=== PATIENT | female | born 1960 | race Caucasian/White ===

== ENCOUNTER 2025-06-04 14:58 | Outpatient (AMB) | payer MEDICARE, MEDICAID, SELFPAY ==
--- NOTE | 2025-06-04 15:14 | MHC.OFFVIS ---
Intake Visit Reasons: 6m Allergies Penicillins (PENICILLINS) Allergy (Intermediate, Unverified 06/04/25 15:21) HIVES Sulfa (Sulfonamide Antibiotics) (SULFA (SULFONAMIDE ANTIBIOTICS)) Allergy (Intermediate, Unverified 06/04/25 15:21) HIVES adhesive (ADHESIVE) Allergy (Mild, Unverified 06/04/25 15:21) RASH STEROID Allergy (Severe, Uncoded 06/04/25 15:21) SHUTS DOWN ADRENAL GLANDS Medication List - Last Reconciled 06/04/25 by Charlene Manzanares CNP albuterol sulfate 90 mcg/actuation 2 puffs inhalation Q6H PRN atorvastatin 20 mg PO DAILY budesonide-formoterol 160-4.5 mcg/actuation 2 puffs inhalation Q12H canagliflozin (Invokana) 300 mg PO DAILY divalproex ER 250 mg PO BID 90 days fluticasone furoate-vilanterol 200-25 mcg/dose (Breo Ellipta) 1 ea inhalation DAILY lacosamide 100 mg PO BID 90 days levetiracetam 1,000 mg PO BID 90 days lisinopril 2.5 mg PO DAILY metoprolol succinate ER 50 mg PO DAILY sertraline 200 mg (2 x 100 mg) PO DAILY 90 days sitagliptin phosphate (Januvia) 25 mg PO DAILY HPI Comments Details: 65-year-old woman with obesity, anxiety, vertigo and epilepsy with generalized seizures of unknown etiology who was also evaluated at [facility] epilepsy clinic. Seizures included a warning of feeling jumpy, not feeling well, an unexplained feeling, leading to passing out. She was told that she shook all over with urinary incontinence and sometimes with tongue bite. EEG revealed generalized polyspike and wave discharges and MRI of brain did not reveal any obvious epileptogenic lesion. She was doing okay. No seizures. Occasionally may miss dose of medication. Balance was off at times. [place] airport [place]. She went to ER and had CT that was apparently okay. Tremors were stable, no functional impairment. She could be forgetful at times. Mood was okay. Sleep was okay, using CPAP. [facility] Medical History (Updated 06/04/25 @ 15:20 by Charlene Manzanares CNP) Multifactorial gait disorder Arthritis Peripheral neuropathy Diabetes mellitus Epilepsy Generalized seizure disorder Anxiety disorder BPPV (benign paroxysmal positional vertigo) Depression Obesity Complex partial seizures Review of Systems Const Denies chills, Denies daytime sleepiness, Denies difficulty sleeping, Reports fatigue, Denies fever(s), Denies frequent falls, Denies headache(s), Denies increased appetite, Denies poor appetite, Denies snoring, Denies weakness, Denies weight gain and Denies weight loss Eyes Denies loss of vision ENT Denies vertigo, Denies dizziness and Denies headache(s) Card Denies chest pain at rest, Denies chest pain with activity, Denies syncope, Denies leg edema and Denies palpitations Resp Denies snoring GI Denies constipation, Denies heartburn, Denies diarrhea and Denies nausea Denies urinary frequency, Denies urinary incontinence and Denies urinary urgency Musc Denies abnormal gait, Denies numbness and Denies tingling Skin/Breast Denies dry skin and Denies rash Neuro Denies abnormal gait, Denies vertigo, Denies dizziness, Denies syncope, Denies frequent falls, Denies headache(s), Denies lack of coordination, Denies loss of vision, Denies memory loss, Denies numbness, Denies restless legs, Denies seizure-like activity, Denies tingling, Denies paresthesias, Denies tremor(s) and Denies weakness Psych Denies anxiety, Denies depression, Denies auditory hallucinations, Denies memory loss, Denies visual hallucinations and Denies suicidal ideation Endo Reports fatigue and Denies palpitations Physical Exam Const Other: General Appearance:? normal, in no acute distress. Heart:? S1, S2 normal, no murmurs. Lungs:? clear anteriorly and posteriorly. Musculoskeletal:? normal. Extremities:? no edema. Psych:? alert, oriented, cognitive function intact, cooperative with exam. Neuro Other: Mental Status:?Normal attention, orientation, memory and affect.? Cranial Nerves:?Pupils are equal, round and reactive to light. External occular muscles are intact. Visual donohue are full. Face is symmetrical. Facial sensations are normal. Tongue is midline. Palate elevates symmetrically. Shoulder shrugging is normal. Hearing to bedside conversation is normal. Motor Examination:?DTRs absent. Sensory Exam:?....? Coordination:?No ataxia,?no titubation.? Gait Exam: Cautious. Extrapyramidal System:?No tremor, rigidity with normal facial expressions.? Involuntary Movements:?Mild postural tremor. Speech:?Normal.? Results Reviewed Results Reviewed: EMG/NCS LEs at off in Jun 2022: b/l distal tibial neuropathy Routine EEG at [facility] in Jan 2020: WNL Amb EEG at [facility] in November 2017: freq gener polyspike and wave discharges Routine EEG at office in Aug 2015: [place] Video EEG monitoring in [facility] in : epileptiform discharges with the recorded seiuzre. Seizure type: complex partial MRI brain [facility] at [facility] in Aug: one small right frontal WM hyperintensity. Assessment & Plan Assessment & Plan (1) Epilepsy: Code(s): G40.909 - Epilepsy, unspecified, not intractable, without status epilepticus Category: Medical Qualifiers: Epilepsy type: unspecified Intractability: not intractable Status epilepticus: without status epilepticus Qualified Code(s): G40.909 - Epilepsy, unspecified, not intractable, without status epilepticus Plan: Continue Vimpat 100mg 1 tablet twice a day. Continue levetiracetam 1000mg 1 tablet twice a day. Continue Depakote ER 250mg 1 tablet twice a day. She was educated on the importance of medication compliance and risk associated with missed doses. Follow up in 6 months or sooner. (2) Depression: Code(s): F32.A - Depression, unspecified Category: Medical Qualifiers: Depression Type: unspecified Qualified Code(s): F32.A - Depression, unspecified Plan: Continue sertraline 100mg 2 tablets daily. (3) Peripheral neuropathy: Code(s): G62.9 - Polyneuropathy, unspecified Category: Medical Qualifiers: Peripheral neuropathy type: polyneuropathy, unspecified Qualified Code(s): G62.9 - Polyneuropathy, unspecified (4) Tremor: Code(s): R25.1 - Tremor, unspecified Category: Medical Plan Meds tried: depakote, lamotrigine, keppra, vimpat Coding Level of Care Code Est Pt Level 4 (32685) Diagnoses Nonintractable epilepsy without status epilepticus, unspecified epilepsy type G40.909 Epilepsy type: unspecified Intractability: not intractable Status epilepticus: without status epilepticus Depression, unspecified depression type F32.A Depression Type: unspecified Peripheral polyneuropathy G62.9 Peripheral neuropathy type: polyneuropathy, unspecified Tremor R25.1
--- OUTSIDE RECORDS SUMMARY | 2025-06-04 15:49 | XMS_ITS ---
Author Name [facility] Organization Unknown Care Team Organization Name Specialty Phone Email Start Date End Da te [facility] 01/22/2025 [facility] Arabella [facility] 11/11/2022 01/22/2024 [facility] Nara Marcelino [facility] 04/12/2022 01/22/20 24
--- OUTSIDE RECORDS SUMMARY | 2025-06-04 15:49 | XMS_ITS | Clinical Summary ---
Author Organization [address] [facility] Address [address] [place] [address] Phone Care Team Providers Care Clinical Lab Technologist Name Role Phone Melissa Malik MD Primary Care Prov ider Allergies Active Allergy Reactions Criticality Noted Date Comments Adhesive 10/30/2012 Bee Venom Protein (Honey Bee) Hives 09/28/2010 Metformin Diarrhea 01/07/2019 Penicillin G 11/17/2005 reaction unknown, family is alllergic so they assumed pt is too. Prednisone Other 11/24/2009 Thirsty, increased hunger, tejeda Other reaction(s): OTHER Thirsty, increased hunger, tejeda Sulfa (Sulfonamide Antibiotics) Itching 06/09/2008 Medications fluticasone propionate (FLONASE) 50 mcg/actuation nasal spray Administer 2 sprays into affected nostril(s). 3 Active multivitamin with minerals tablet Take 1 tablet by mouth 1 (one) time each day. 3 Active blood sugar diagnostic (FreeStyle Lite Strips) test strip Use to test blood sugar once daily 3 Active lacosamide (VIMPAT) 100 mg tablet Take 1 tablet (100 mg total) by mouth. 2 Active FREESTYLE LANCETS MISC Use to check blood sugar once daily fasting. 2 Active levETIRAcetam (KEPPRA) 1,000 mg tablet Take 1 tablet (1,000 mg total) by mouth. 2 Active divalproex (DEPAKOTE ER) 250 mg 24 hr tablet Take 1 tablet (250 mg total) by mouth. 2 Active inhalational spacing device inhaler USE WITH INHALER FOUR TIMES DAILY FOR SHORTNESS OF BREATH (*NOT COVERED*) 2 Active sertraline (ZOLOFT) 100 mg tablet Take 2 tablets (200 mg total) by mouth. 1 Active blood-glucose meter kit Use to check blood sugar once daily fasting. E11.9 9 Active clonazePAM (KlonoPIN) 0.5 mg tablet Take 1 tablet (0.5 mg total) by mouth. Active albuterol HFA (PROAIR HFA ; PROVENTIL HFA ; VENTOLIN HFA) 90 mcg/actuation inhaler Inhale 2 puffs by mouth every 6 (six) hours if needed for wheezing. 6.7 g 2 5 07/12/19 26 Active atorvastatin (LIPITOR) 20 mg tablet TAKE 1 TABLET BY MOUTH EVERY DAY 90 tablet 1 5 Active Januvia 25 mg tablet TAKE 1 TABLET BY MOUTH EVERY DAY 90 tablet 1 5 Active nabumetone (RELAFEN) 750 mg tablet Take 1 tablet (750 mg total) by mouth 2 (two) times a day. 28 tablet 5 Active metoprolol succinate (TOPROL-XL) 25 mg 24 hr tablet TAKE 2 TABLETS BY MOUTH EVERY DAY 180 tablet 1 5 Active Invokana 300 mg tablet TAKE 1 TABLET BY MOUTH EVERY DAY 90 tablet 1 5 Active lisinopriL (PRINIVIL,ZESTR IL) 2.5 mg tablet TAKE 1 TABLET BY MOUTH EVERY DAY 90 tablet 1 5 Active Active Problems Problem Noted Date Diagnosed Date Abnormal EKG 09/17/2024 Assessment & Plan (09/17/2024 9:00 AM EDT): The patient's EKG today showed evidence of a septal infarct pattern. This is new when compared to her prior EKG. Will order an echocardiogram to rule out the presence of any regional wall motion abnormality that could represent the presence of a prior NH. In the meantime, the patient will continue her current medication regimen. Orders: Transthoracic echocardiogram (TTE) complete with PRN contrast, bubble, strain, and 3D order panel; Future perflutren lipid microsphere (DEFINITY) 1.3 mL in sodium chloride 0.9% 8.7 mL injection Primary hypertension 09/17/2024 Assessment & Plan (09/17/2024 9:00 AM EDT): The patient has a history of arterial hypertension. The patient's blood pressure today was noted to be well controlled. We'll continue the current antihypertensive medication regimen. Morbid obesity with BMI of 40.0-44.9, adult 07/07 Relative polycythemia 07/06/2023 Overview (07/25/2023): Previously seen with Dr. Haro Microalbuminuria 03/25/2022 Nocturnal hypoxia 02/26/2022 Overview (07/25/2023): Patient overnight oximetry on 02/22/2022 shows significant desaturation on CPAP: 1. Lowest oxygen 83% 2. Basal SPO2 is 87%. 3. Time spent under 88% is 365 minutes. 4. Supplemental oxygen indicated in addition to CPAP. Patient's overnight oximetry on 12/15/2022 on CPAP and 2 L of oxygen shows significant desaturations: 1. Lowest SPO2 is 85%. 2. Time spent less than 88% is 1 hour 46minutes out of 8 hours 20 minutes sleep time. 3. CPAP and oxygen is not adequately controlling her patient's oxygenation at this time new sleep study on different Treatment is necessary. Last Assessment & Plan: 1. Supplemental oxygen at 2 L and to [employer] to added to CPAP. 2. Treatment sleep study ordered. Nocturnal hypoxia 02/26/2022 Overview (03/13/2024): Patient overnight oximetry on 07/03/2023 shows significant desaturation on BiPAP: 1. Lowest oxygen 82% 2. Basal SPO2 is 89%. 3. Time spent under 88% is 278 minutes. 4. Supplemental oxygen indicated in addition to BiPAP at 3L. Patient overnight oximetry on 02/22/2022 shows significant desaturation on CPAP: 1. Lowest oxygen 83% 2. Basal SPO2 is 87%. 3. Time spent under 88% is 365 minutes. 4. Supplemental oxygen indicated in addition to CPAP. Patient's overnight oximetry on 12/15/2022 on CPAP and 2 L of oxygen shows significant desaturations: 1. Lowest SPO2 is 85%. 2. Time spent less than 88% is 1 hour 46minutes out of 8 hours 20 minutes sleep time. 3. CPAP and oxygen is not adequately controlling her patient's oxygenation at this time new sleep study on different Treatment is necessary. Last Assessment & Plan: 1. Supplemental oxygen at 2 L and to [employer] to added to CPAP. 2. Treatment sleep study ordered. Anxiety 01/08/2022 Obstructive sleep apnea 08/17/2021 Overview (07/25/2023): [facility] home sleep test 08/27/2021; weight 251; BMI 43. AHI 6. 5 obstructive apneas, 3 central apneas and 38 hypopneas. Average oxygen saturation 87% and oxygen carlton 80%. Obstructive sleep apnea-mild with mostly hypopneas and some obstructive and central apneas; nocturnal hypoxemia based on 2021 home sleep test. Frequent PVCs 05/06/2021 Overview (07/25/2023): Last Assessment & Plan: Patient has a history of palpitations secondary to symptomatic PVCs. She completed a Holter monitor previously which showed a PVC burden of 2.3%. She also completed a sleep study which showed obstructive sleep apnea and continues to wear her CPAP with oxygen on a nightly basis and follows with pulmonology closely. Echocardiogram completed September 2021 showed normal LV function and no significant valve disease. She also completed a pharmacological nuclear stress test which showed no evidence of ischemia or infarct. At her last office visit, her metoprolol was increased to 50 mg orally daily to help suppress her symptoms of palpitations. She reports improvement in her symptoms. At this point, we will continue her current dose of metoprolol. Her heart rate is noted to be 72 bpm. We reviewed the possible triggers of palpitations including caffeine consumption, alcohol consumption, cigarette smoking, inadequate sleeping patterns, and stress. At this point, the patient will attempt to avoid the usual triggers. She will continue to try to cut back on her smoking. She will continue to wear her CPAP. 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 Assessment & Plan (09/17/2024 9:00 AM EDT): The patient has a history of frequent PVCs. She is on beta-della therapy with metoprolol. She denies any palpitations on today's visit. Will continue her current beta-della therapy Orders: ECG 12 lead Dyslipidemia 12/21/2020 Overview (07/25/2023): Last Assessment & Plan: Patient has a history of hyperlipidemia as well as a history of diabetes. She is currently on atorvastatin 20 mg orally daily. Will continue current therapy. I have reviewed with the patient the importance of a heart healthy lifestyle which includes eating a low-fat low-salt diet, getting regular exercise, maintaining a healthy weight, not smoking, and following up with routine medical care. Assessment & Plan (07/12/2024 12:29 PM EST): Patient currently on atorvastatin 20 mg a day. Last LDL was 89 We will continue same medication. Healthy diet and regular exercise were encouraged today. Epilepsy 12/21/2020 Overview (07/25/2023): followed by Dr. Hartman Assessment & Plan (07/12/2024 12:29 PM EST): Follows regularly with neurology. No seizures over the last year. Recommended to continue Keppra and Depakote as prescribed by the specialist. Moderate depressive episode 04/15/2020 Controlled type 2 diabetes m [place] without complication, without long-term current use of insulin 03/21/2019 Assessment & Plan (07/12/2024 12:29 PM EST): Well controlled, hemoglobin A1c has been stable 7.3. Patient currently on canagliflozin, Januvia, trying to follow the recommended diet. She is also on lisinopril 2.5 mg a day for renal protection. Low-carb diet and regular exercise were discussed with the patient. We will continue same medications. We will follow-up in 4 months. Orders: Hemoglobin A1c; Future Fatty infiltration of liver 12/17/2018 Diverticulitis of large inte jono without perforation or abscess without bleeding 04/10/2017 Erythrocytosis 04/26/2014 Overview (07/25/2023): Hgb usually 16.2-16.4 Thyroid nodule 01/30/2014 DJD (degenerative joint disease) of cervical spi ne 10/04/2012 DJD (degenerative joint disease) of knee 013 Overview (07/25/2023): Dr. Hilton Kilpatrick Smoking 07/23/2009 Overview (07/25/2023): Last Assessment & Plan: The patient has a history of chronic cigarette smoking. During today's conversation, I encouraged the patient to quit smoking. The patient stated she is not yet ready to quit smoking. I thoroughly explained the fact that her history of smoking does increase her risk of having a heart attack or a cerebrovascular accident. Despite this morning, the patient stated that she is still not ready to quit smoking. BPV (benign positional vertigo) 11/17/2005 Resolved Problems Problem Noted Date Diagnosed Date Resolved Date Dyspnea 08/23/2021 09/17/2024 Overview (07/25/2023): Last Assessment & Plan: The patient states that she has been experiencing episodes of exertional dyspnea. She denies any chest pain at rest or with exertion. The patient does have multiple risk factors for CAD including: Diabetes, chronic smoking, and hyperlipidemia. As such, we need to consider the possibility of ischemic heart disease as a cause of the patient's exertional dyspnea. Furthermore, on a previous chest CT (11/15/2021): The patient was noted to have atherosclerotic calcification of the coronary arteries. Given the scenario, we will schedule the patient for a stress test. However, given the patient's history of osteoarthritis she will be unlikely to be able to complete an exercise protocol. As such, we will schedule the patient for a pharmacological nuclear stress test. Encounters Date Type Department Care Team Description 05/17/2025 9:39 AM EST - 05/17/2025 12:26 PM [facility] [address] [place] [id number] Marco Antonio Mercedes MD Head injury, initial encounter (Primary Dx); Fall, initial encounter; Nonintractable headache, unspecified chronicity pattern, unspecified headache type Discharge Disposition: Home or Self Care 05/16/2025 Telephone Adult Medicine [address] [phone] Melissa Malik MD from Last 3 Months Immunizations Immunization Administration Dates Next Due Influenza Quadravalent, MDCK , 0.5ml, preservative free (Flucelvax) 6mo and older 03/25/2022 Influenza Quadravalent, MDCK , 0.5ml, with preservative (Flucelvax) 6mo and older 03/15/2023,01/20/2021,03/28/2019,03/28 Influenza trivalent, recombi nant, 0.5mL, preservative free (Flublok) 9yo and older 04/21/2025 Influenza trivalent, with pr eservative (Fluzone; Afluria) 6mo and older 03/28/2020,03/28/2019 Influenza, Unspecified 02/03/2021 Moderna (age 6mo & older) Bi valent, COVID-19, 0.5 mL or 0.25 mL dosage 08/20/2022 Moderna SARS-CoV-2 COVID-19, mRNA, LNP-S, preservative free 08/20/2022,05/06/2021 Pfizer SARS-CoV-2 COVID-19, mRNA, LNP-S, preservative free 05/06/2021 Pneumococcal conjugate 20 va lent (Prevnar 20, PCV 20) 2mo and older 01/13/2025 Pneumococcal polysaccharide 23 valent (Pneumovax 23) 2yo and older 04/15/2019 RSV, bivalent, protein subun it RSVpreF, 0.5mL, Preservative Free (Arexvy) 50yo and older 02/14/2024 Td Tetanus diptheria (Tdvax) 7yo and older 03/03/2004 Tdap Tetanus diptheria acell ular pertussis (Boostrix; Adacel) 7yo and older 04/21/2025 Zoster recombinant (Shingrix ) 19yo and older 06/28/2020,03/28/2020 Surgical History Surgery Date Site/Laterality Comments KNEE SURGERY PROCEDURE: HISTORICAL KNEE SURGERY; COMMENT: arthroscopic x 5 on right and x 1 on left CHOLECYSTECTOMY 1997 PROCEDURE: HISTORICAL CHOLECYSTECTOMY HYSTERECTOMY - 1999 PROCEDURE: HISTORICAL HYSTERECTOMY; COMMENT: ovaries/cervic removed, for endometrial hyperplasia HAND SURGERY 2008 Right PROCEDURE: HISTORICAL HAND SURGERY; COMMENT: removed accessory bone CARPAL TUNNEL RELEASE 2009 Right PROCEDURE: HISTORICAL CARPAL TUNNEL REL FINE NEEDLE ASPIRATION PROCEDURE: FINE NDLE ASPRTN W/IMAGING GUIDANCE; COMMENT: rt. breast bx-fna OTHER SURGICAL HISTORY PROCEDURE: ---- OTHER ----; COMMENT: abdominal hernia repair, pt unsure what kind, they found two , few years ago cannot recall when Medical History Medical History Date Comments Dizziness and giddiness 11/17/2005 DX:Dizzi ness and giddiness Allergic rhinitis, cause unspecified DX:Allergic rhinitis, cause unspecified Controlled type 2 diabetes m ell[place] without complication, without long-term current use of insulin ([facility] V24, [facility] V28) 03/21/2019 DX:Controlled type 2 diabet es mellitus without complication, without long-term current use of insulin (HCC) Epilepsy ([facility] V24, [facility] V28) DX:Epilepsy (HCC); COMMENT: followed by Dr. Hartman Depression DX:Depression; C OMMENT: Dr. Hartman History of colonoscopy DX:Histor y of colonoscopy; COMMENT: never had one, declined, 07/22/20 stool guiac negative Anxiety 01/08/2022 DX:Anxiety Family History Medical History Relation Name Comments Other: kidey prob Father diabetes COPD Mother Breast cancer Neg Hx Relation Name Status Comments Brother Alive Barney-Parkinson White Syndrome; ablation Father (Age 79) HTN, DMII, CAD s/p bypass, high cholesterol, ARF Maternal Grandfather (Age 96) Co odessa cancer Maternal Grandmother (Age 60s) E mphysema Mother Alive COPD, cataracts , tremors Other Alive Paternal Grandfather (Age 70s) S tomach cancer Paternal Grandmother (Age 70s) C ancer ? type Sister Alive GERD, Barrets e sophagus Social History Tobacco Use Types Packs/Day Years Used Date Smoking Tobacco: Every Day Cigarettes Smokeless Tobacco: Never Alcohol Use Standard Drinks/Week Comments Not Currently 0 (1 standard drink = 0.6 oz pur e alcohol) Housing Instability Answer Date Recorde d Are you worried that in the next 2 months you may not have stable housing? No 07/12/2024 Food Access & Nutrition Answer Date Rec orded Do you have access to a vari ety of food including fruits and vegetables? No 07/12/2024 Access to Healthcare Answer Date Record ed Within the last 3 months, barbie low many times did you visit the emergency department for your medical care? 0 07/12/2024 Health Literacy Answer Date Recorded How often do you need to hav e someone help you when you read instructions, pamphlets, or other written material from your doctor or pharmacy? Never 07/12/2024 Caregiver: How often do you need to have someone help you when you read instructions, pamphlets, or other written material from your doctor or pharmacy? Not on file 07/12/2024 Financial Risk Answer Date Recorded How hard is it for you to pa y for the very basics like food, housing, medical care, and air conditioning / heating? Not very hard 07/12/2024 Transportation Answer Date Recorded Has the lack of transportati on kept you from meetings, work, or from getting things needed for daily living? No Has the lack of transportati on kept you from medical appointments or from getting medications? No 07/12/2024 Social Isolation Answer Date Recorded How often do you feel lonely or isolated from th ose around you? Never 07/12/2024 Food Risk Answer Date Recorded Within the past 12 months we worried whether our food would run out before we got money to buy more. Never true 07/12/2024 Within the past 12 months th e food we bought just didn't last and we didn't have money to get more. Never true 07/12/2024 Dependent Care Answer Date Recorded Do you need help finding or paying for care for your loved ones. For example, child caregiver or elderly care for an older adult? No 07/12/2024 Education Answer Date Recorded Do you think completing more education or training, like finishing a GED, going to college, or learning a trade, would be helpful for you? No 07/12/2024 Living Situation Answer Date Recorded What is your living situation? Unrecognized valu e 07/12/2024 Comments No Sex and Gender Information Value Date Recorded Sex Assigned at Female 04/12/2024 9:19 AM EST Legal Sex Female 9:50 PM EST Gender Identity Female 04/12/2024 9:19 AM EST Sexual Orientation Straight 04/12/2024 9: 19 AM EST Obstetrics History Para Term AB IAB SAB Ectopic Multiple Livin g Live Births 0 0 0 Last Filed Vital Signs Vital Sign Reading Time Taken Comments Blood Pressure 109/38 05/17/2025 11:19 AM EST Pulse 73 05/17/2025 11:19 AM EST Temperature 36.3 C (97.3 F) 05/17/2025 11:19 AM EST Respiratory Rate 16 05/17/2025 11:19 AM EST Oxygen Saturation 93% 05/17/2025 11:19 AM EST Inhaled Oxygen Concentration - - Weight 109 kg (241 lb) 05/17/2025 8:57 AM EST Height 162.6 cm (5' 4 ) 05/17/2025 8:57 AM EST Body Mass Index 41.37 05/17/2025 8:57 AM EST Plan of Treatment Health Maintenance Due Date Last Done Comments Drug Screen 1960 Non-Opioid Controlled Substance Agreement 1960 Diabetes: Annual Urine Albumin-Creatinine Ratio (uACR) 10/26/2024 10/27/2023 Diabetes: Annual GFR (Glomerular Filtration Rate) 07/02/2025 07/02/2024, 02/12/2024, 02/12/2024, Additional history exists Hypertension/CHF/CAD Annual BMP Blood Test 07/02/2025 07/02/2024, 02/12/2024, 02/12/2024, Additional history exists Diabetes: Blood Sugar Control Test (HGBA1C) 07/12/2025 01/09/2025, 07/02/2024, 02/12/2024, Additional history exists Social Influencers of Health Screening 07/12/2025 07/12/2024 Diabetes: Annual Retina Eye Exam 09/12/2025 09/12/2024 Lung Cancer Screening (Low Dose CT) 11/28/2025 11/28/2024, 11/28/2023, 11/22/2022, Additional history exists Diabetes: Annual Foot Exam 01/13/2026 01/13/2025, Breast Cancer Screening 08/13/2026 08/14/19, 07/31/2023, 07/21/2022, Additional history exists Medicare Annual Wellness Visit 2027 Postponed from 05/14/2022 (Not clinically appropriate to address at this time) Colorectal Cancer Screening: FIT-DNA (Cologuard) 03/10/2027 03/10/2024 Cholesterol Screening (Lipid Panel) 07/02/2029 07/02/2024, 10/27/2023, 10/27/2023, Additional history exists DTaP,Tdap,and Td Vaccines (3 - Td or Tdap) 04/21/2035 04/21/2025, 03/03/2004 Hepatitis C Screening Completed 03/21/2015 Zoster Vaccines Completed 06/28/2020, 03/28/2020 RSV Immunization Adult Patients Completed 02/14/2024 Depression Screening Completed 01/13/2025, 11/06/19 Pneumococcal Vaccine: 50+ Years Completed 01/13/2025, 04/15/2019 COVID-19 Vaccine Completed 04/21/2025, 04/2024, 03/15/2023, Additional history exists Influenza Vaccine Completed 04/21/2025, , 03/25/2022, Additional history exists HIB Vaccines Aged Out No longer eligi ble based on patient's age to complete this topic HIV Screening Discontinued HPV Vaccines Aged Out No longer eligi ble based on patient's age to complete this topic Hepatitis A Vaccines Aged Out No long er eligible based on patient's age to complete this topic Hepatitis B Vaccines Aged Out No long er eligible based on patient's age to complete this topic IPV Vaccines Aged Out No longer eligi ble based on patient's age to complete this topic MMR Vaccines Aged Out No longer eligi ble based on patient's age to complete this topic Meningococcal ACWY Vaccine Aged Out N o longer eligible based on patient's age to complete this topic Meningococcal B Vaccine Aged Out No l onger eligible based on patient's age to complete this topic RSV Immunization Patients Under 20 months Aged Out No longer eligible based on patient's age to complete this topic Varicella Vaccines Aged Out No longer eligible based on patient's age to complete this topic Procedures Procedure Name Priority Date/Time Associated Diagnosis Comments CT CERVICAL SPINE WO CONTRAST STAT 05/17/2025 10:[address] MAXILLOFACIAL WO CONTRAST STAT 05/17/2025 10:[address] HEAD WO CONTRAST STAT 05/17/2025 1 0:49 AM EST HEMOGLOBIN A1C Routine 01/09/2025 11:28 AM EDT Controlled type 2 diabetes mellitus without complication, without long-term current use of insulin (CMS/HCC V24, CMS/HCC V28) CT LUNG SCREENING Routine 11/28/2024 1:5 3 PM EDT Encounter for screening for malignant neoplasm of respiratory organs Nicotine dependence, cigarettes, uncomplicated EXTERNAL DIABETIC RETINA EYE EXAM 09/12/2024 MG MAMMO DIGITAL SCREENING W PETER BILAT Routine 08/13/2024 1:59 PM EDT Encounter for screening mammogram for breast cancer COMPREHENSIVE METABOLIC PANEL Routine 07/02/2024 11:40 AM EST Controlled type 2 diabetes mellitus without complication, without long-term current use of insulin (CMS/HCC V24, CMS/HCC V28) LIPID PANEL WITH REFLEX TO DIRECT LDL Routine 07/02/2024 11:40 AM EST Controlled type 2 diabetes mellitus without complication, without long-term current use of insulin (CMS/HCC V24, CMS/HCC V28) EXTERNAL COLOGUARD (FIT-DNA) REPORT Routine 03/10/2024 1:49 PM EDT DIABETES FOOT EXAM Routine 02/13/2024 DEPRESSION SCREENING Routine 11/06/2023 URINE ALBUMIN CREATININE RATIO Routine 10/27/2023 HEPATITIS C SCREENING Routine 03/21/2015 from Last 3 Months or Most Recently Relevant to Health Maintenance Results * CT Cervical Spine wo Contrast (05/17/2025 10:49 AM EST) Anatomical Region Laterality Modality Spine, C-spine Computed Tomogra phy 05/17/2025 11:1 6 AM EST Impressions 05/17/2025 11:29 AM EST No intracranial hemorrhage. No intracranial mass. No acute fracture or subluxation of the cervical spine. No acute maxillofacial fracture. There is a superficial hematoma in the right supraorbital region. -------- FINAL REPORT -------- Dictated By: Keegan Bañuelos Dictated Date: 05/17/2025 11:16 ET Assigned Physician: Keegan Bañuelos Reviewed and Electronically Signed By: Keegan Bañuelos Signed Date: 05/17/2025 11:29 ET Workstation ID: [id number] Transcribed By: Self Edit Transcribed Date: 05/17/2025 11:16 ET Narrative 05/17/2025 11:29 AM EST EXAMINATION: CT HEAD WITHOUT CONTRAST CT CERVICAL SPINE WITHOUT CONTRAST CT MAXILLOFACIAL WITHOUT CONTRAST CLINICAL INFORMATION: Right frontal head trauma. Headache. Fall. Bilateral periorbital ecchymosis post head trauma COMPARISON: None TECHNIQUE: Multidetector CT. Examination of the head, maxillofacial region and cervical spine. Examination of the head, cervical spine and maxillofacial region without IV contrast. Reformatting in the coronal and sagittal planes. DLP: 2406 mGy-cm Dose optimization was performed including the use of low-dose iterative reconstruction technique with automatic exposure control based on patient size. Type of contrast: None Volume of IV contrast: None Volume of contrast discarded: 0 mL FINDINGS: Significant artifact through the skull base. HEAD CT: Intracranial hemorrhage: No evidence of recent intracranial hemorrhage. Ventricles, cisterns and sulci: There is no midline shift. There is no dilation of the ventricles. The basilar cisterns are well visualized. Extra-axial mass or collections: No extra-axial mass or collection Intra-axial mass: No mass demonstrated Acute infarct: No acute territorial infarct demonstrated. White matter disease: No suspicious abnormality. Anguiano-white interface: No disruption of the anguiano-white interface. Paranasal sinuses: The visualized paranasal sinuses are well pneumatized and aerated Osseous/Scalp[: No focal bony lesion CERVICAL CT: There is no acute fracture or subluxation. No suspicious focal lesion or loss of volume. Mild disc narrowing at C5/C6 and C6/C7 with some associated osteophyte. No large abnormality within the spinal canal. There is a small nodule measuring close to 1 cm at the junction of the right lobe and isthmus of the thyroid No suspicious abnormality the visualized apex of the chest MAXILLOFACIAL CT: There is a superficial hematoma in the right supraorbital region. No acute maxillofacial fracture. Specifically the orbital rims, zygomatic arches, mandible and lamina papyracea as well as the pterygoids appear intact. No orbital hematoma. The globes appear intact and symmetric. Procedure Note Keegan Bañuelos MD - 05/17/2025 EXAMINATION: CT HEAD WITHOUT CONTRAST CT CERVICAL SPINE WITHOUT CONTRAST CT MAXILLOFACIAL WITHOUT CONTRAST CLINICAL INFORMATION: Right frontal head trauma. Headache. Fall. Bilateral periorbitalecchymosis post head trauma COMPARISON: None TECHNIQUE: Multidetector CT. Examination of the head, maxillofacial region andcervical spine. Examination of the head, cervical spine and maxillofacial region withoutIV contrast. Reformatting in the coronal and sagittal planes. DLP: 2406 mGy-cm Dose optimization was performed including the use of low-dose iterativereconstruction technique with automatic exposure control based on patientsize. Type of contrast: None Volume of IV contrast: None Volume of contrast discarded: 0 mL FINDINGS: Significant artifact through the skull base. HEAD CT: Intracranial hemorrhage: No evidence of recent intracranial hemorrhage. Ventricles, cisterns and sulci: There is no midline shift. There is nodilation of the ventricles. The basilar cisterns are well visualized. Extra-axial mass or collections: No extra-axial mass or collection Intra-axial mass: No mass demonstrated Acute infarct: No acute territorial infarct demonstrated. White matter disease: No suspicious abnormality. Anguiano-white interface: No disruption of the anguiano-white interface. Paranasal sinuses: The visualized paranasal sinuses are well pneumatizedand aerated Osseous/Scalp[: No focal bony lesion CERVICAL CT: There is no acute fracture or subluxation. No suspicious focal lesion orloss of volume. Mild disc narrowing at C5/C6 and C6/C7 with some associated osteophyte. No large abnormality within the spinal canal. There is a small nodule measuring close to 1 cm at the junction of theright lobe and isthmus of the thyroid No suspicious abnormality the visualized apex of the chest MAXILLOFACIAL CT: There is a superficial hematoma in the right supraorbital region. No acute maxillofacial fracture. Specifically the orbital rims, zygomaticarches, mandible and lamina papyracea as well as the pterygoids appearintact. No orbital hematoma. The globes appear intact and symmetric. IMPRESSION: No intracranial hemorrhage. No intracranial mass. No acute fracture or subluxation of the cervical spine. No acute maxillofacial fracture. There is a superficial hematoma in the right supraorbital region. -------- FINAL REPORT -------- Dictated By: Keegan Bañuelos Dictated Date: 05/17/2025 11:16 ET Assigned Physician: Keegan Bañuelos Reviewed and Electronically Signed By: Keegan Bañuelos Signed Date: 05/17/2025 11:29 ET Workstation ID: [id number] Transcribed By: Self Edit Transcribed Date: 05/17/2025 11:16 ET Marco Antonio Mercedes MD IMAlex CT PROCEDURES Final Result * CT Maxillofacial wo Contrast (05/17/2025 10:49 AM EST) Anatomical Region Laterality Modality Head and Neck Computed Tomogra phy 05/17/2025 11:1 6 AM EST Impressions 05/17/2025 11:29 AM EST No intracranial hemorrhage. No intracranial mass. No acute fracture or subluxation of the cervical spine. No acute maxillofacial fracture. There is a superficial hematoma in the right supraorbital region. -------- FINAL REPORT -------- Dictated By: Keegan Bañuelos Dictated Date: 05/17/2025 11:16 ET Assigned Physician: Keegan Bañuelos Reviewed and Electronically Signed By: Keegan Bañuelos Signed Date: 05/17/2025 11:29 ET Workstation ID: [id number] Transcribed By: Self Edit Transcribed Date: 05/17/2025 11:16 ET Narrative 05/17/2025 11:29 AM EST EXAMINATION: CT HEAD WITHOUT CONTRAST CT CERVICAL SPINE WITHOUT CONTRAST CT MAXILLOFACIAL WITHOUT CONTRAST CLINICAL INFORMATION: Right frontal head trauma. Headache. Fall. Bilateral periorbital ecchymosis post head trauma COMPARISON: None TECHNIQUE: Multidetector CT. Examination of the head, maxillofacial region and cervical spine. Examination of the head, cervical spine and maxillofacial region without IV contrast. Reformatting in the coronal and sagittal planes. DLP: 2406 mGy-cm Dose optimization was performed including the use of low-dose iterative reconstruction technique with automatic exposure control based on patient size. Type of contrast: None Volume of IV contrast: None Volume of contrast discarded: 0 mL FINDINGS: Significant artifact through the skull base. HEAD CT: Intracranial hemorrhage: No evidence of recent intracranial hemorrhage. Ventricles, cisterns and sulci: There is no midline shift. There is no dilation of the ventricles. The basilar cisterns are well visualized. Extra-axial mass or collections: No extra-axial mass or collection Intra-axial mass: No mass demonstrated Acute infarct: No acute territorial infarct demonstrated. White matter disease: No suspicious abnormality. Anguiano-white interface: No disruption of the anguiano-white interface. Paranasal sinuses: The visualized paranasal sinuses are well pneumatized and aerated Osseous/Scalp[: No focal bony lesion CERVICAL CT: There is no acute fracture or subluxation. No suspicious focal lesion or loss of volume. Mild disc narrowing at C5/C6 and C6/C7 with some associated osteophyte. No large abnormality within the spinal canal. There is a small nodule measuring close to 1 cm at the junction of the right lobe and isthmus of the thyroid No suspicious abnormality the visualized apex of the chest MAXILLOFACIAL CT: There is a superficial hematoma in the right supraorbital region. No acute maxillofacial fracture. Specifically the orbital rims, zygomatic arches, mandible and lamina papyracea as well as the pterygoids appear intact. No orbital hematoma. The globes appear intact and symmetric. Procedure Note Keegan Bañuelos MD - 05/17/2025 EXAMINATION: CT HEAD WITHOUT CONTRAST CT CERVICAL SPINE WITHOUT CONTRAST CT MAXILLOFACIAL WITHOUT CONTRAST CLINICAL INFORMATION: Right frontal head trauma. Headache. Fall. Bilateral periorbitalecchymosis post head trauma COMPARISON: None TECHNIQUE: Multidetector CT. Examination of the head, maxillofacial region andcervical spine. Examination of the head, cervical spine and maxillofacial region withoutIV contrast. Reformatting in the coronal and sagittal planes. DLP: 2406 mGy-cm Dose optimization was performed including the use of low-dose iterativereconstruction technique with automatic exposure control based on patientsize. Type of contrast: None Volume of IV contrast: None Volume of contrast discarded: 0 mL FINDINGS: Significant artifact through the skull base. HEAD CT: Intracranial hemorrhage: No evidence of recent intracranial hemorrhage. Ventricles, cisterns and sulci: There is no midline shift. There is nodilation of the ventricles. The basilar cisterns are well visualized. Extra-axial mass or collections: No extra-axial mass or collection Intra-axial mass: No mass demonstrated Acute infarct: No acute territorial infarct demonstrated. White matter disease: No suspicious abnormality. Anguiano-white interface: No disruption of the anguiano-white interface. Paranasal sinuses: The visualized paranasal sinuses are well pneumatizedand aerated Osseous/Scalp[: No focal bony lesion CERVICAL CT: There is no acute fracture or subluxation. No suspicious focal lesion orloss of volume. Mild disc narrowing at C5/C6 and C6/C7 with some associated osteophyte. No large abnormality within the spinal canal. There is a small nodule measuring close to 1 cm at the junction of theright lobe and isthmus of the thyroid No suspicious abnormality the visualized apex of the chest MAXILLOFACIAL CT: There is a superficial hematoma in the right supraorbital region. No acute maxillofacial fracture. Specifically the orbital rims, zygomaticarches, mandible and lamina papyracea as well as the pterygoids appearintact. No orbital hematoma. The globes appear intact and symmetric. IMPRESSION: No intracranial hemorrhage. No intracranial mass. No acute fracture or subluxation of the cervical spine. No acute maxillofacial fracture. There is a superficial hematoma in the right supraorbital region. -------- FINAL REPORT -------- Dictated By: Keegan Bañuelos Dictated Date: 05/17/2025 11:16 ET Assigned Physician: Keegan Bañuelos Reviewed and Electronically Signed By: Keegan Bañuelos Signed Date: 05/17/2025 11:29 ET Workstation ID: [id number] Transcribed By: Self Edit Transcribed Date: 05/17/2025 11:16 ET Marco Antonio Mercedes MD IMAlex CT PROCEDURES Final Result * CT Head wo Contrast (05/17/2025 10:49 AM EST) Anatomical Region Laterality Modality Head and Neck Computed Tomogra phy 05/17/2025 11:1 6 AM EST Impressions 05/17/2025 11:29 AM EST No intracranial hemorrhage. No intracranial mass. No acute fracture or subluxation of the cervical spine. No acute maxillofacial fracture. There is a superficial hematoma in the right supraorbital region. -------- FINAL REPORT -------- Dictated By: Keegan Bañuelos Dictated Date: 05/17/2025 11:16 ET Assigned Physician: Keegan Bañuelos Reviewed and Electronically Signed By: Keegan Bañuelos Signed Date: 05/17/2025 11:29 ET Workstation ID: [id number] Transcribed By: Self Edit Transcribed Date: 05/17/2025 11:16 ET Narrative 05/17/2025 11:29 AM EST EXAMINATION: CT HEAD WITHOUT CONTRAST CT CERVICAL SPINE WITHOUT CONTRAST CT MAXILLOFACIAL WITHOUT CONTRAST CLINICAL INFORMATION: Right frontal head trauma. Headache. Fall. Bilateral periorbital ecchymosis post head trauma COMPARISON: None TECHNIQUE: Multidetector CT. Examination of the head, maxillofacial region and cervical spine. Examination of the head, cervical spine and maxillofacial region without IV contrast. Reformatting in the coronal and sagittal planes. DLP: 2406 mGy-cm Dose optimization was performed including the use of low-dose iterative reconstruction technique with automatic exposure control based on patient size. Type of contrast: None Volume of IV contrast: None Volume of contrast discarded: 0 mL FINDINGS: Significant artifact through the skull base. HEAD CT: Intracranial hemorrhage: No evidence of recent intracranial hemorrhage. Ventricles, cisterns and sulci: There is no midline shift. There is no dilation of the ventricles. The basilar cisterns are well visualized. Extra-axial mass or collections: No extra-axial mass or collection Intra-axial mass: No mass demonstrated Acute infarct: No acute territorial infarct demonstrated. White matter disease: No suspicious abnormality. Anguiano-white interface: No disruption of the anguiano-white interface. Paranasal sinuses: The visualized paranasal sinuses are well pneumatized and aerated Osseous/Scalp[: No focal bony lesion CERVICAL CT: There is no acute fracture or subluxation. No suspicious focal lesion or loss of volume. Mild disc narrowing at C5/C6 and C6/C7 with some associated osteophyte. No large abnormality within the spinal canal. There is a small nodule measuring close to 1 cm at the junction of the right lobe and isthmus of the thyroid No suspicious abnormality the visualized apex of the chest MAXILLOFACIAL CT: There is a superficial hematoma in the right supraorbital region. No acute maxillofacial fracture. Specifically the orbital rims, zygomatic arches, mandible and lamina papyracea as well as the pterygoids appear intact. No orbital hematoma. The globes appear intact and symmetric. Procedure Note Keegan Bañuelos MD - 05/17/2025 EXAMINATION: CT HEAD WITHOUT CONTRAST CT CERVICAL SPINE WITHOUT CONTRAST CT MAXILLOFACIAL WITHOUT CONTRAST CLINICAL INFORMATION: Right frontal head trauma. Headache. Fall. Bilateral periorbitalecchymosis post head trauma COMPARISON: None TECHNIQUE: Multidetector CT. Examination of the head, maxillofacial region andcervical spine. Examination of the head, cervical spine and maxillofacial region withoutIV contrast. Reformatting in the coronal and sagittal planes. DLP: 2406 mGy-cm Dose optimization was performed including the use of low-dose iterativereconstruction technique with automatic exposure control based on patientsize. Type of contrast: None Volume of IV contrast: None Volume of contrast discarded: 0 mL FINDINGS: Significant artifact through the skull base. HEAD CT: Intracranial hemorrhage: No evidence of recent intracranial hemorrhage. Ventricles, cisterns and sulci: There is no midline shift. There is nodilation of the ventricles. The basilar cisterns are well visualized. Extra-axial mass or collections: No extra-axial mass or collection Intra-axial mass: No mass demonstrated Acute infarct: No acute territorial infarct demonstrated. White matter disease: No suspicious abnormality. Anguiano-white interface: No disruption of the anguiano-white interface. Paranasal sinuses: The visualized paranasal sinuses are well pneumatizedand aerated Osseous/Scalp[: No focal bony lesion CERVICAL CT: There is no acute fracture or subluxation. No suspicious focal lesion orloss of volume. Mild disc narrowing at C5/C6 and C6/C7 with some associated osteophyte. No large abnormality within the spinal canal. There is a small nodule measuring close to 1 cm at the junction of theright lobe and isthmus of the thyroid No suspicious abnormality the visualized apex of the chest MAXILLOFACIAL CT: There is a superficial hematoma in the right supraorbital region. No acute maxillofacial fracture. Specifically the orbital rims, zygomaticarches, mandible and lamina papyracea as well as the pterygoids appearintact. No orbital hematoma. The globes appear intact and symmetric. IMPRESSION: No intracranial hemorrhage. No intracranial mass. No acute fracture or subluxation of the cervical spine. No acute maxillofacial fracture. There is a superficial hematoma in the right supraorbital region. -------- FINAL REPORT -------- Dictated By: Keegan Bañuelos Dictated Date: 05/17/2025 11:16 ET Assigned Physician: Keegan Bañuelos Reviewed and Electronically Signed By: Keegan Bañuelos Signed Date: 05/17/2025 11:29 ET Workstation ID: [id number] Transcribed By: Self Edit Transcribed Date: 05/17/2025 11:16 ET Marco Antonio Mercedes MD IM CT PROCEDURES Final Result * (ABNORMAL) Hemoglobin A1c (01/09/2025 11:28 AM EDT) Hemoglobin A1C 7.8(H) <6.5 % LAB CHEMISTRY METHOD 01/09/2025 9:48 PM EDT [facility] Mean Bld Glu Estim. 177 mg/dL LAB CHEMISTRY METHOD 01/09/2025 9:48 PM EDT [facility] Blood Venous blood specimen / Unknown Venipuncture / Unknown 01/09/2025 11:28 AM EDT 01/09/2025 11:28 AM EDT Melissa Malik MD LAB BLOOD ORDERABL ES Final Result [facility] ([facility] [address] [place] [address], [place] [phone] * CT Lung Screening (11/28/2024 1:53 PM EDT) Anatomical Region Laterality Modality Chest Computed Tomogra phy 11/28/2024 4:40 PM EDT Impressions 11/28/2024 4:44 PM EDT No suspicious pulmonary nodule. ASSESSMENT: LungRADS Category1: Negative - Continue annual screening with LDCT in 12 months Complete Lung RADS description including probabilities of malignancy and prevalence can be found at: [employer] Committee on Lung-RADS?. Lung- RADS Assessment Categories 2021. Available at [email or web address]. LungRADS v2022. Assessment Categories Release date: April 2022 Category 0: Incomplete - Additional lung cancer screening CT images and/or comparison with prior CT is needed. - Prior chest CT(s) being located for comparison. - Part or all of the lungs cannot be evaluated. -Findings suggestive of an infectious or inflammatory process. (1-3 month LDCT) Category 1: Negative - Continue annual screening with LDCT in 12 months - No lung nodules - Nodule(s) with specific calcifications (complete, central, popcorn, concentric rings) and fat containing nodules Category 2: Benign Appearance/Behavior - Continue annual screening with LDCT in 12 months -Juxtapleural nodule measuring <10mm AND Solid; smooth margins; oval or triangular shape -Solid nodule < 6 mm or new solid nodule < 4 mm. - Part solid nodule(s) < 6 mm total diameter on baseline screening. - Ground glass nodule < 30 mm or > 30 mm and unchanged or slowly growing. - Category 3 unchanged for at least 6 months; Category 4 nodules proved benign Category 3: Probably Benign - 6 month LDCT - Solid nodule(s) > 6 to < 8 mm at baseline OR new 4 mm to < 6 mm. - Part solid nodule(s) > 6 mm total diameter with solid component < 6 mm OR new < 6 mm total diameter. - Ground glass nodule > [address] or new. Category 4A: Suspicious - 3 month LDCT; PET/CT may be used when there is ? 8 mm solid component - Solid nodule(s) > 8 to < 15 mm at baseline OR growing < 8 mm OR new 6 to < 8 mm. - Part solid nodule(s) > 6 mm with solid component > 6 mm to < 8 mm OR with a new or growing < 4 mm solid component. - Endobronchial nodule. Category 4B: Suspicious - Chest CT with or without contrast, PET/CT and/or tissue sampling depending on the probability of malignancy and comorbidities. PET/CT may be used when there is a > 8 mm solid component. - Solid nodule(s) > 15 mm OR new or growing and > 8 mm - Part solid nodule(s) with a solid component ? 8 mm OR a new or growing ? 4 mm solid component Category 4X: Suspicious - Chest CT with or without contrast, PET/CT and/or tissue sampling depending on the probability of malignancy and comorbidities. PET/CT may be used when there is a ? 8 mm solid component. - Category 3 or 4 nodules with additional features or imaging findings that increases the suspicion of malignancy. Category S: Clinically Significant or Potentially Clinically Significant Findings (non lung cancer) Category C: Modifier for patients with a prior diagnosis of lung cancer who return to screening -------- FINAL REPORT -------- Dictated By: Aiyana Avilez Dictated Date: 11/28/2024 16:40 ET Assigned Physician: Aiyana Avilez Reviewed and Electronically Signed By: Aiyana Avilez Signed Date: 11/28/2024 16:44 ET Workstation ID: [id number] Transcribed By: Self Edit Transcribed Date: 11/28/2024 16:40 ET Narrative 11/28/2024 4:44 PM EDT History: 64 year-old 49 pack-year current smoker, asymptomatic, for lung cancer screening. Comparison: 11/27/2023 Technique: Helical volumetric imaging of the thorax was performed, using low- dose technique, without IV contrast. DLP: 165 mGy/cm CT dose reduction technique utilized with one or more of the following: Automated exposure control and/or adjustment of the mA and/or kV according to patient size and/or use of iterative reconstruction technique. Findings: Lungs: No evidence of focal pulmonary airspace disease. Calcified granuloma right upper lobe. No concerning nodule. Pleura: There are no pleural effusions. No calcified or noncalcified pleural plaques. Mediastinum: No mass. Vascular calcifications. Upper Abdomen: This study was performed without contrast and with lower than standard dose. These factors reduce the sensitivity for detection of small lesions in the upper abdomen. Osseous Structures: No suspicious osseous abnormalities. Procedure Note Aiyana Avilez MD - 11/28/2024 History: 64 year-old 49 pack-year current smoker, asymptomatic, for lungcancer screening. Comparison: 11/27/2023 Technique: Helical volumetric imaging of the thorax was performed, usinglow-dose technique, without IV contrast. DLP: 165 mGy/cm CT dose reduction technique utilized with one or more of the following:Automated exposure control and/or adjustment of the mA and/or kV accordingto patient size and/or use of iterative reconstruction technique. Findings: Lungs: No evidence of focal pulmonary airspace disease. Calcifiedgranuloma right upper lobe. No concerning nodule. Pleura: There are no pleural effusions. No calcified or noncalcifiedpleural plaques. Mediastinum: No mass. Vascular calcifications. Upper Abdomen: This study was performed without contrast and with lowerthan standard dose. These factors reduce the sensitivity for detection ofsmall lesions in the upper abdomen. Osseous Structures: No suspicious osseous abnormalities. IMPRESSION: No suspicious pulmonary nodule. ASSESSMENT: LungRADS Category1: Negative - Continue annual screening with LDCT in 12months Complete Lung RADS description including probabilities of malignancy andprevalence can be found at: [employer] onLung-RADS?. Lung-RADS Assessment Categories 2021. Available [email or web address]. LungRADS v2022. Assessment Categories Release date: April 2022 Category 0: Incomplete - Additional lung cancer screening CT images and/orcomparison with prior CT is needed. - Prior chest CT(s) being located for comparison. - Part or all of the lungs cannot be evaluated. -Findings suggestive of an infectious or inflammatory process. (1-3 monthLDCT) Category 1: Negative - Continue annual screening with LDCT in 12 months - No lung nodules - Nodule(s) with specific calcifications (complete, central, popcorn,concentric rings) and fat containing nodules Category 2: Benign Appearance/Behavior - Continue annual screening withLDCT in 12 months -Juxtapleural nodule measuring <10mm AND Solid; smooth margins; oval ortriangular shape -Solid nodule < 6 mm or new solid nodule < 4 mm. - Part solid nodule(s) < 6 mm total diameter on baseline screening. - Ground glass nodule < 30 mm or > 30 mm and unchanged or slowlygrowing. - Category 3 unchanged for at least 6 months; Category 4 nodules provedbenign Category 3: Probably Benign - 6 month LDCT - Solid nodule(s) > 6 to < 8 mm at baseline OR new 4 mm to < 6 mm. - Part solid nodule(s) > 6 mm total diameter with solid component < 6 mmOR new < 6 mm total diameter. - Ground glass nodule > [address] or new. Category 4A: Suspicious - 3 month LDCT; PET/CT may be used when there is ?8 mm solid component - Solid nodule(s) > 8 to < 15 mm at baseline OR growing < 8 mm OR new 6 to< 8 mm. - Part solid nodule(s) > 6 mm with solid component > 6 mm to < 8 mm ORwith a new or growing < 4 mm solid component. - Endobronchial nodule. Category 4B: Suspicious - Chest CT with or without contrast, PET/CT and/ortissue sampling depending on the probability of malignancy andcomorbidities. PET/CT may be used when there is a > 8 mm solidcomponent. - Solid nodule(s) > 15 mm OR new or growing and > 8 mm - Part solid nodule(s) with a solid component ? 8 mm OR a new or growing ?4 mm solid component Category 4X: Suspicious - Chest CT with or without contrast, PET/CT and/ortissue sampling depending on the probability of malignancy andcomorbidities. PET/CT may be used when there is a ? 8 mm solidcomponent. - Category 3 or 4 nodules with additional features or imaging findingsthat increases the suspicion of malignancy. Category S: Clinically Significant or Potentially Clinically SignificantFindings (non lung cancer) Category C: Modifier for patients with a prior diagnosis of lung cancerwho return to screening -------- FINAL REPORT -------- Dictated By: Aiyana Avilez Dictated Date: 11/28/2024 16:40 ET Assigned Physician: Aiyana Avilez Reviewed and Electronically Signed By: Aiyana Avilez Signed Date: 11/28/2024 16:44 ET Workstation ID: [id number] Transcribed By: Self Edit Transcribed Date: 11/28/2024 16:40 ET us Kiki Rivera MD IMG CT PROCEDURES Final Result * External Diabetic Retina Eye Exam Report (09/12/2024) Anatomical Region Laterality Modality Ultrasound us Provider [facility] IMG US PROCEDURES Final Result * MG Mammo Digital Screening w Peter bilat (08/13/2024 1:59 PM EDT) Anatomical Region Laterality Modality Breast Bilateral Mammography 08/14/2024 8:24 AM EDT Impressions 08/14/2024 8:28 AM EDT Benign. BI-RADS CATEGORY: 1 - NEGATIVE RECOMMENDATION: Screening bilateral mammogram is recommended in 1 year. Mammo Location: [facility], [address] [place] [address], [id number], . -------- FINAL REPORT -------- Dictated By: Vivi Rucker Dictated Date: 08/14/2024 08:24 ET Assigned Physician: Vivi Rucker Reviewed and Electronically Signed By: Vivi Rucker Signed Date: 08/14/2024 08:28 ET Workstation ID: [id number] Transcribed By: Self Edit Transcribed Date: 08/14/2024 08:24 ET Narrative 08/14/2024 8:28 AM EDT CLINICAL: 64 years old, Female, routine annual exam. COMPARISON: Mammograms dating back to 05/13/2020 with most recent of 07/31/2023. TECHNIQUE: Bilateral MLO and CC views were obtained digitally with 3-D mammogram (digital breast tomosynthesis). Computer-aided detection was utilized in evaluation of this exam (CAD). FINDINGS: There is no evidence of suspicious mass or architectural distortion. No worrisome calcifications are evident. There has been no significant change from prior exam(s). BREAST DENSITY: B - There are scattered areas of fibroglandular density. Procedure Note Vivi Rucker MD - 08/14/2024 CLINICAL: 64 years old, Female, routine annual exam. COMPARISON: Mammograms dating back to 05/13/2020 with most recent of07/31/2023. TECHNIQUE: Bilateral MLO and CC views were obtained digitally with 3-Dmammogram (digital breast tomosynthesis). Computer-aided detection wasutilized in evaluation of this exam (CAD). FINDINGS: There is no evidence of suspicious mass or architectural distortion. Noworrisome calcifications are evident. There has been no significantchange from prior exam(s). BREAST DENSITY: B - There are scattered areas of fibroglandular density. IMPRESSION: Benign. BI-RADS CATEGORY: 1 - NEGATIVE RECOMMENDATION: Screening bilateral mammogram is recommended in 1 year. Mammo Location: [facility], [address] [place] [address], [id number], . -------- FINAL REPORT -------- Dictated By: Vivi Rucker Dictated Date: 08/14/2024 08:24 ET Assigned Physician: Vivi Rucker Reviewed and Electronically Signed By: Vivi Rucker Signed Date: 08/14/2024 08:28 ET Workstation ID: [id number] Transcribed By: Self Edit Transcribed Date: 08/14/2024 08:24 ET us Melissa Malik MD IMG BI PROCEDURES Final Result * (ABNORMAL) Lipid panel with reflex to direct LDL (07/02/2024 11:40 AM EST) Cholesterol 168 0 - 200 mg/dL LAB CHEMISTRY METHOD 07/02/2024 4:04 PM EST [facility] Triglycerides 227(H) 0 - 150 mg/dL LAB CHEMISTRY METHOD 07/02/2024 4:04 PM [facility] HDL 34(L) >=40 mg/dL LAB CHEMISTRY METHOD 07/02/2024 4:04 PM [facility] LDL Calculated 89 0 - 100 mg/dL LAB CHEMISTRY METHOD 07/02/2024 4:04 PM [facility] VLDL Cholesterol Michael 45.4 mg/dL LAB CHEMISTRY METHOD 07/02/2024 4:04 PM [facility] Non HDL Chol. (LDL+VLDL) 134 <145 mg/dL LAB CHEMISTRY METHOD 07/02/2024 4:04 PM [facility] Chol/HDL Ratio 4.9(H) 0.0 - 4.4 LAB CHEMISTRY METHOD 07/02/2024 4:04 PM [facility] Blood Venous blood specimen / Unknown Venipuncture / Unknown 07/02/2024 11:40 AM EST 07/02/2024 11:40 AM EST Melissa Malik MD LAB BLOOD ORDERABL ES Final Result [facility] [address] [place] [address], * (ABNORMAL) Comprehensive metabolic panel (07/02/2024 11:40 AM EST) Sodium 137 133 - 145 mmol/L LAB CHEMISTRY METHOD 07/02/2024 4:04 PM [facility] Potassium 4.2 3.5 - 5.5 mmol/L LAB CHEMISTRY METHOD 07/02/2024 4:04 PM [facility] Chloride 102 96 - 110 mmol/L LAB CHEMISTRY METHOD 07/02/2024 4:04 PM [facility] CO2 31 21 - 32 mmol/L LAB CHEMISTRY METHOD 07/02/2024 4:04 PM [facility] Anion Gap 4 3 - 11 LAB CHEMISTRY METHOD 07/02/2024 4:04 PM [facility] Glucose 145(H) 70 - 100 mg/dL LAB CHEMISTRY METHOD 07/02/2024 4:04 PM [facility] BUN 12 5 - 25 mg/dL LAB CHEMISTRY METHOD 07/02/2024 4:04 PM [facility] Creatinine 0.75 0.50 - 1.10 mg/dL LAB CHEMISTRY METHOD 07/02/2024 4:04 PM [facility] eGFR 90 >=60 mL/min/1. 73m2 LAB CHEMISTRY METHOD 07/02/2024 4:04 PM [facility] Comment:Calculation based on the Chronic Kidney Disease Epidemiology Collaboration (CKD-EPI) equation refit without adjustment for race. BUN/Creatinine Ratio 16.0 LAB CHEMISTRY METHOD 07/02/2024 4:04 PM [facility] Calcium 9.9 8.5 - 10.5 mg/dL LAB CHEMISTRY METHOD 07/02/2024 4:04 PM [facility] AST (SGOT) 14 10 - 42 unit/L LAB CHEMISTRY METHOD 07/02/2024 4:04 PM [facility] ALT (SGPT) 18 10 - 60 unit/L LAB CHEMISTRY METHOD 07/02/2024 4:04 PM [facility] Alkaline Phosphatase 83 42 - 121 unit/L LAB CHEMISTRY METHOD 07/02/2024 4:04 PM [facility] Total Protein 7.1 6.0 - 8.0 g/dL LAB CHEMISTRY METHOD 07/02/2024 4:04 PM [facility] Albumin 3.9 3.2 - 5.0 g/dL LAB CHEMISTRY METHOD 07/02/2024 4:04 PM [facility] Total Bilirubin 0.3 0.0 - 1.4 mg/dL LAB CHEMISTRY METHOD 07/02/2024 4:04 PM EST [facility] Blood Venous blood specimen / Unknown Venipuncture / Unknown 07/02/2024 11:40 AM EST 07/02/2024 11:40 AM EST Result [facility] Melissa Malik MD LAB BLOOD ORDERABL ES Final Result [facility] [address] [place] [address], * External Cologuard (FIT-DNA) Report (03/10/2024 1:49 PM EDT) Result [facility] Provider LAB BODY FLUIDS AND STOOL S ORDERABLES Final Result * Diabetes Foot Exam (02/13/2024) [facility] Diabetes: Annual Foot Exam abstracted Result [facility] Historical Provider HEALTH MAINTENANCE Final Result * Depression Screening (11/06/2023) [facility] Depression Screening abstracted Historical Provider HEALTH MAINTENANCE Final Result * Urine Albumin Creatinine Ratio (10/27/2023) [facility] Urine Albumin Creatinine Ratio abstracted Result [facility] Provider HEALTH MAINTENANCE Final Result * Hepatitis C Screening (03/21/2015) [facility] Hepatitis C Screening abstracted Result [facility] Historical Provider HEALTH MAINTENANCE Final Result from Last 3 Months or Most Recently Relevant to Health Maintenance [facility] [place] [id number] MEDICARE MEDICAID [place] Advance Directives Documents on File Type Date Recorded Patient Ticketing Agent Expl anation Health Care Decision (hx) 03/15/2017 AD OSHE[employer] DIRECTIVE Health Care Decision (hx) 03/15/2017 AD OSHEA DIRECTIVE Health Care Decision (hx) 03/15/2017 AD OSHEA DIRECTIVE Health Care Decision (hx) 03/15/2017 AD OSHEA DIRECTIVE Health Care Decision (hx) 03/15/2017 AD OSHEA DIRECTIVE Health Care Decision (hx) 03/15/2017 AD OSHEA DIRECTIVE Health Care Decision (hx) 03/15/2017 AD OSHEA DIRECTIVE Health Care Decision (hx) 03/15/2017 AD OSHEA DIRECTIVE Health Care Decision (hx) 03/15/2017 AD OSHEA DIRECTIVE Health Care Decision (hx) 03/15/2017 AD OSHEA DIRECTIVE Health Care Decision (hx) 03/15/2017 AD OSHEA DIRECTIVE Health Care Decision (hx) 03/15/2017 AD OSHEA DIRECTIVE Health Care Decision (hx) 03/15/2017 AD OSHEA DIRECTIVE Health Care Decision (hx) 03/15/2017 AD OSHEA DIRECTIVE Health Care Decision (hx) 03/15/2017 AD OSHEA DIRECTIVE Care Teams Clinical Lab Technologist Relationship Specialty Start Date End Date Melissa Malik MD [address] [place] [phone] PCP - General Internal Medicine 03/25/22
--- OUTSIDE RECORDS SUMMARY | 2025-06-04 15:49 | XMS_ITS | Clinical Summary ---
Author Organization [facility] Prior to 11/02/[address] [place] [address] Care Team Providers Care Testing Projects Administrator Name Role Phone Melissa Kelley MD Primary Care Prov ider Allergies Active Allergy Reactions Criticality Noted Date Comments Metformin Diarrhea 01/07/2019 Penicillin G 06/16/2022 Penicillin G Benzathine 11/17/2005 reaction unknown, family is alllergic so they assumed pt is too. Prednisone 11/24/2009 Other reaction(s): OTHER Thirsty, increased hunger, tejeda Sulfa Antibiotics Itching 06/09/2008 Tape 10/30/2012 Medications Medication Sig Dispensed Refills Start Date End Date Status albuterol 108 (90 Base) MCG/ACT inhaler Inhale 2 puffs into the lungs. 0 10/14/2021 Active atorvastatin (LIPITOR) tablet 20 mg Take 1 tablet (20 mg total) by mouth daily. 0 06/02/2022 Active Invokana 300 MG TABS Take 1 tablet by mouth daily. 0 04/09/2022 Active clonazePAM (KlonoPIN) 0.5 MG tablet Take 1 tablet (0.5 mg total) by mouth. 0 Active divalproex (DEPAKOTE) 250 MG 24 hr tablet Take 1 tablet (250 mg total) by mouth 2 (two) times a day. 0 04/12/2022 Active Fluticasone Furoate-Vilanterol (Breo Ellipta) 200-25 MCG/ACT AEPB TAKE 1 PUFF BY MOUTH EVERY DAY 0 05/07/2022 Active Lacosamide (VIMPAT) 100 MG TABS tablet Take 1 tablet (100 mg total) by mouth 2 (two) times a day. for 30 days 0 06/02/2022 Active lisinopril (PRINIVIL,ZESTRIL) tablet 2.5 mg Take 1 tablet (2.5 mg total) by mouth daily. 0 03/25/2022 Active metoprolol succinate (TOPROL-XL) 24 hr tablet 25 mg Take 1 tablet (25 mg total) by mouth daily. 0 04/02/2022 Active sertraline (ZOLOFT) 100 MG tablet Take 2 tablets (200 mg total) by mouth daily. 0 04/25/2022 Active Januvia 25 MG tablet Take 1 tablet (25 mg total) by mouth daily. 0 05/11/2022 Active Active Problems No known active problems Social History Tobacco Use Types Packs/Day Years Used Date Smoking Tobacco: Every Day Cigarettes 0.5 45 Smokeless Tobacco: Never Tobacco Cessation:Ready to Q uit: Not Asked; Counseling Given: Not Answered Alcohol Use Standard Drinks/Week Comments Not Currently 0 (1 standard drink = 0.6 oz pur e alcohol) Sex and Gender Information Value Date Recorded Sex Assigned at Not on file Gender Identity Not on file Sexual Orientation Not on file Job Start Date Occupation Industry Not on file Not on file Not on file Last Filed Vital Signs Vital Sign Reading Time Taken Comments Blood Pressure 145/63 06/16/2022 10:33 AM EST Pulse 50 06/16/2022 10:33 AM EST Temperature 36.1 C (96.9 F) 06/16/2022 10:33 AM EST Respiratory Rate - - Oxygen Saturation 92% 06/16/2022 10:33 AM EST Inhaled Oxygen Concentration - - Weight 109.8 kg (242 lb) 06/16/2022 10:33 AM EST Height 162.6 cm (5' 4 ) 06/16/2022 10:33 AM EST Body Mass Index 41.54 06/16/2022 10:33 AM EST Plan of Treatment Health Maintenance Due Date Last Done Comments Hepatitis C Screening 1962 Depression Screening 1974 Preventative Health Evaluation 02/06/1980 DTap / Tdap / Td (1 - Tdap) 1981 Cervical Cancer Screening (Pap Smear) 1983 Colon Cancer Screening (Colonoscopy) 2007 Breast Cancer Screening (Mammogram) 02/06/2012 Pneumococcal Vaccine (2 of 2 - PCV) 04/15/2020 04/15/2019 COVID-19 Vaccine (4 - 2025-2 6 season) 2025 05/06/2021, 09/23/2020, 09/01/2020 Influenza Vaccine (#1) 2025 2, 03/28/2020, 03/28/2017 RSV Adult > 60+ Yrs or (1 - 1-dose 75+ series) 2037 Shingrix-Zoster Vaccine Completed 06/28/19 21, 03/28/2020 Hepatitis B Vaccines Aged Out No long er eligible based on patient's age to complete this topic RSV Ped < 20 months Aged Out No longe r eligible based on patient's age to complete this topic Care Teams Testing Projects Administrator Relationship Specialty Start Date End Date Melissa Kelley MD [address] [place] [address] PCP - General Internal Medicine 04/01/22
== END 2025-06-04 15:36 | disposition home or self-care (01) ==
PROVIDERS: Visit Provider Registered Nurse
DX: G40.909 Epilepsy, unspecified, not intractable, without status epilepticus (principal); F32.A Depression, unspecified; G62.9 Polyneuropathy, unspecified; R25.1 Tremor, unspecified
CPT/HCPCS: 99214

== ENCOUNTER → 2025-06-04 14:58 | Outpatient (BNVA) | payer MEDICARE, MEDICAID, SELFPAY | PROVIDERS: Visit Provider Registered Nurse | DX: G40.909 Epilepsy, unspecified, not intractable, without status epilepticus (principal); E11.42 Type 2 diabetes mellitus with diabetic polyneuropathy; Z79.84 Long term (current) use of oral hypoglycemic drugs; F32.A Depression, unspecified; R25.1 Tremor, unspecified | CPT/HCPCS: 99212 ==